=== PATIENT | male | born 1955 | race Caucasian/White ===

== ENCOUNTER → 2021-06-04 | Outpatient (CLI) | payer MEDICARE ==
--- NOTE | 2021-06-04 09:36 | MR ---
MR brain without contrast HISTORY: Diplopia, headache Multiplanar multisequence imaging obtained through the brain, no comparisons There is no restricted diffusion. There is no hemorrhage or hydrocephalus. Brain signal is maintained with exception of some scattered periventricular, subcortical hyperintensities on inversion recovery T2-weighted sequences, approximately 20 lesions are present, largest on axial image 19 in the right parietal lobe measures 7 mm. There are expected vascular flow voids, however, on axial image #14 seri es 501, coronal image #18 series 701 there is a probable aneurysm involving the internal carotid kd ry in the right measuring 5 mm. The orbits show symmetric appearance. There is mucosal disease within the ethmoid air cells. Corpus callosum, pituitary, cervical medullary junction, cerebellopontine ang les are normal. 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 Nonspecific white matter demyelination, consider chronic small vessel ischemic changes, hypertension, migraine h eadaches, Lyme disease, multiple sclerosis felt to be less likely. Mild sinus disease. infor med by perfect serve.
== END | disposition home or self-care (01) ==
LOC: RADMRIMAIN 08:40
PROVIDERS: ATTEND Family Medicine
DX: I72.0 Aneurysm of carotid artery (principal); I10 Essential (primary) hypertension
CPT/HCPCS: 70551

== ENCOUNTER → 2021-07-13 | Outpatient (CLI) | payer MEDICARE ==
--- NOTE | 2021-07-13 13:45 | MR ---
EXAMINATION TYPE: MR angio head wo con DATE OF EXAM: 07/13/2021 COMPARISON: Prior MRI brain June 04, 2021 HISTORY: Aneurysm / Abnormal MRI TECHNIQUE: Time of flight images focusing on the [place] were performed without contrast.. 2-D and 3-D postprocessing imaging is performed on independent workstation and reviewed. FINDINGS: Dominant right vertebral artery is demonstrated. Vertebral arteries are patent to basilar j unction. There is hypoplastic left P1 segment with filling of the P2 segment due to patent posterior communicating artery. There is hypoplastic right posterior communicating artery. No significant focal stenosis or aneurysm in the posterior circulation. Images of the anterior circulation confirm patent anterior communicating artery. There is confirmatio n of the eccentric posterior aneurysm with slight superior extension from the right M2 segment measur ing 4.9 mm AP diameter by 3.8 mm transversely image 143 series 301 corresponding to area of concern o n recent MRI. No additional aneurysm identified. No significant focal stenosis seen. 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 Advise neurosurgical and/or endovascular interventional referral.
== END | disposition home or self-care (01) ==
LOC: RADMRIMAIN 12:37
PROVIDERS: ATTEND Family Medicine
DX: I67.1 Cerebral aneurysm, nonruptured (principal); R51.9 Headache, unspecified
CPT/HCPCS: 70544

== ENCOUNTER → 2023-11-03 | Outpatient (CLI) | payer MEDICARE ==
--- NOTE | 2023-11-07 21:52 | MR ---
EXAMINATION TYPE: MR angio head wo con DATE OF EXAM: 11/03/2023 COMPARISON: HISTORY: Cerebral Aneurysm CONTRAST: None TECHNIQUE: Multiplanar multiecho imaging on a 3.0 Manjula magnet is performed through the [facility]. 3-D [id number] imaging is performed. Source images are reviewed on the computer in the axi al plane. Reconstructed images rotating on the computer are reviewed. FINDINGS: The internal carotid arteries bifurcate normally into A1 and M1 segments. The A2 segments are normal. Middle cerebral artery branches are normal. There is an aneurysm extending superiorly from the proximal right A1 segment. This measures 0.4 cm in diameter. Previous measurement 0.3 cm previous measurement air appears similar. Close follow-up redd kamaljit is recommended Anterior communicating artery is patent. The right posterior communicating artery is absent. The left posterior communicating artery is patent. Vertebrobasilar arteries within the [id number] are normal. Posterior cerebral vasculature is norm al. No obstructions are identified. No significant flow-limiting stenosis is evident. IMPRESSION: 1. 0.4 cm right internal carotid artery bifurcation aneurysm appears to be off the A1 segment measure s 0.4 cm, previous measurement 0.3 cm. This may be due to measurement error. However close follow-up is recommended.
== END | disposition home or self-care (01) ==
LOC: RADMRIMAIN 20:15
PROVIDERS: ATTEND Family Medicine
DX: I67.1 Cerebral aneurysm, nonruptured (principal)
CPT/HCPCS: 70544

== ENCOUNTER → 2024-08-27 | Outpatient (CLI) | payer MEDICARE ==
--- NOTE | 2024-08-27 09:06 | CT ---
EXAMINATION TYPE: CT hip RT wo con DATE OF EXAM: 08/27/2024 COMPARISON: None CLINICAL INDICATION: Male, 69 years old with history of M25.551 PAIN IN RIGHT HIP; PHH, rt hip pain x [address] DLP: 133 mGycm Automated exposure control for dose reduction was used. FINDINGS: Mild hypertrophic hip arthropathy. No acute fracture. No dislocation. No erosive changes. No abnormal attenuation in the visualized soft tissues. IMPRESSION: MILD HIP ARTHROPATHY. [facility], , 08/27/2024 9:04 AM
--- NOTE | 2024-08-27 09:11 | CT ---
EXAMINATION TYPE: CT pelvis wo con DATE OF EXAM: 08/27/2024 COMPARISON: None CLINICAL INDICATION: Male, 69 years old with history of M25.551 PAIN IN RIGHT HIP; PHH, rt hip pain x [address] DLP: 371 mGycm Automated exposure control for dose reduction was used. FINDINGS: Mild hypertrophic hip arthropathy. Vacuum disc and severe degenerative disc disease levels L3-S1. Broad-based disc bulging. Facet arthro ernesto and posterior spondylosis at these levels likely results in foraminal encroachment. Hypertrophi c SI joint arthropathy. Bladder partially distended. Vascular phleboliths are seen. Prostate measures 4.5 cm. Diverticulosis of the colon. No sizable free fluid air. No sizable free fluid. Mild atherosclerotic change aorta and iliac vasculature. Scattered tiny punctate sclerotic foci likely related to benign bone island. Sli ght curvature of the lower vertebral column. Correlate for scoliosis. A tiny fat-containing bilateral inguinal hernia. No inflammatory changes. IMPRESSION: 1. MILD BILATERAL HYPERTROPHIC HIP ARTHROPATHY WHICH CAN OCCASIONALLY BE ASSOCIATED WITH FEMORAL MARLENA TABULAR IMPINGEMENT. 2. SEVERE DEGENERATIVE DISC DISEASE WITH SUSPECTED FORAMINAL ENCROACHMENT LOWER LUMBAR SPINE. SUSPECT MULTILEVEL CANAL STENOSIS. [facility], , 08/27/2024 9:09 AM
== END | disposition home or self-care (01) ==
LOC: RADCTMAIN 08:10
PROVIDERS: ATTEND Family Medicine
DX: M12.851 Other specific arthropathies, not elsewhere classified, right hip (principal); M25.851 Other specified joint disorders, right hip; M25.852 Other specified joint disorders, left hip; M51.369 Other intervertebral disc degeneration, lumbar region without mention of lumbar back pain or lower extremity pain
CPT/HCPCS: 72192

== ENCOUNTER → 2024-09-06 | Outpatient (CLI) | payer MEDICARE ==
--- NOTE | 2024-09-06 08:50 | MR ---
EXAMINATION TYPE: MR brain wo/w con DATE OF EXAM: 09/06/2024 6:58 AM COMPARISON: MRA 11/03/2023 and MRI 06/04/2021 CLINICAL INDICATION: Male, 69 years old with history of I67.1 CEREBRAL ANEURYSM, NONRUPTURED, CEREBRA L ANEURYSM NONRUPTURED IV Contrast: 8ML cc Gadobutrol (None if empty) TECHNIQUE: Multiplanar, multisequence images of the brain and brainstem were acquired before and aft er administration of 8ML mL IV Gadobutrol. Diffusion weighted imaging is performed. FINDINGS: No evidence for acute infarction, hemorrhage, mass, mass effect, midline shift, herniation, effacemen t of basal cisterns, or extra-axial fluid collection. Mild age-related volume loss overlying the bilateral cerebral convexities. Ventricles are normal jeri bernice. 5 mm saccular aneurysm projecting posteriorly and superiorly near the takeoff of the A1 segment right SOFI remains unchanged. There is anatomic variation of persistent origin left CASTING TESTER. Major intrac ranial flow voids are intact. T2/FLAIR weighted sequences show mild to moderate scattered bright signal foci throughout the subcort ical and deep white matter regions of both cerebral hemispheres. Some changes in the periventricular regions as well. There seems to be some progression from 06/04/2021. Midline structures demonstrate normal morphology. The craniocervical junction is normal. Post contrast images demonstrate no evidence of pathologic enhancement. Dural venous sinuses are pat ent. Slight rightward nasal septal deviation. Mild mucosal thickening throughout the ethmoid air cells. Gl obes are intact. IMPRESSION: 1. A 5 mm saccular aneurysm near the takeoff of the A1 segment right SOFI remains unchanged (as measur ed on sagittal series). 2. Mild to moderate scattered burden of T2 bright white matter change. Findings could reflect chronic small vessel ischemic disease, hypertension, or sequela of chronic migraines. Changes slightly progr essed from 2020. 3. No acute intracranial abnormality seen. No abnormal enhancing lesions. 4. Mild chronic ethmoid sinus disease. [facility], , 09/06/2024 8:48 AM
== END | disposition home or self-care (01) ==
LOC: RADMRIMAIN 05:55
PROVIDERS: ATTEND Family Medicine
DX: I67.1 Cerebral aneurysm, nonruptured (principal); J32.2 Chronic ethmoidal sinusitis; R90.82 White matter disease, unspecified; J34.2 Deviated nasal septum
CPT/HCPCS: 70553; A9585